=== PATIENT | male | born 1970 | race Caucasian/White ===

== ENCOUNTER 2024-03-28 07:20 | Day surgery (SDC) | payer BC ==
[2024-03-28] MEDS ORDERED: Lidocaine 1% 20 ML MDV ONE (07:24)
[2024-03-28] MEDS ORDERED: Bupivacaine 0.5% 30 ML SDV ONE (07:24)
[2024-03-28] MEDS: Lactated Ringers 1,000 ML IV SCH (08:36)
[2024-03-28] MEDS ORDERED: Propofol 200 MG/20 ML SDV ONE (08:39)
[2024-03-28] MEDS ORDERED: fentaNYL 100 MCG/2 ML SDV ONE (08:40)
[2024-03-28] MEDS ORDERED: Succinylcholine/Sod PF 100 MG/5 ML SYRINGE IV ONE (09:18)
[2024-03-28] MEDS ORDERED: Ondansetron 4 MG/2 ML SDV ONE (09:18)
[2024-03-28] MEDS ORDERED: Lidocaine 1% 5 ML VIAL ONE (09:18)
[2024-03-28] MEDS ORDERED: ceFAZolin 2 GM Vial ONE (09:19)
== END 2024-03-28 11:00 | disposition home or self-care (01) ==
LOC: MW.SDS 07:20
PROVIDERS: ATTEND Surgery
DX: C82.90 Follicular lymphoma, unspecified, unspecified site (principal); F17.210 Nicotine dependence, cigarettes, uncomplicated; Z45.2 Encounter for adjustment and management of vascular access device; Z79.899 Other long term (current) drug therapy
CPT/HCPCS: 36561; 71045; 76000; J0330; J0665; J0690; J1642; J2405; J2704; J3010; J7120; C1788; J3490